=== PATIENT | female | born 1945 | race Caucasian/White ===

== ENCOUNTER → 2022-02-23 09:33 | Outpatient (CLI) | payer MEDICARE, SELFPAY ==
--- OUTSIDE RECORDS SUMMARY | 2022-02-23 09:36 | XMS_ITS ---
:1945 Author Care Team Providers Name Role Phone BERTO TAYLOR MD Primary Care Provider [phone] REI WRIGHT MD General Surgeon [phone] Allergies Code Code System Name Reaction Severity Status Onset Mason Inhibitors ? ? Active ? Animal Dander ? ? Active ? 2670 RxNorm Codeine ? ? Active ? Tree and Shrub Pollen ? ? Active ? RxNorm Zocor ? ? Active ? Medications Name Status Start Date Stop Date ? ? atorvastatin 20 mg tablet Active 01/09/2022 Not av ailable TAKE ONE TABLET BY MOUTH EVERY DAY benzonatate 100 mg capsule Completed ? 03/21 bupropion HCl XL 150 mg 24 hr tablet, extended Active ? Not available release cetirizine 10 mg tablet Active 01/09/2022 Not avai lable Take 1 tablet as needed by oral route for 90 days. clindamycin HCl 150 mg capsule Completed ? 0 10/13/2020 TAKE ONE CAPSULE BY MOUTH FOUR TIMES A DAY UNTIL FINISHED diclofenac 0.1 % eye drops Completed ? 10/14 Instill 1 drop every day by ophthalmic route for 25 days. E-Z Spacer Completed 01/17/2016 04/04/2017 1 (one) Device Device: as directed Elimite 5 % topical cream Completed 09/13/20062005 1 (one) Application(s): see below ferrous sulfate 325 mg (65 mg iron) tablet Active 01/09 Not available Take 1 tablet every other day by oral route for 90 days. fexofenadine 180 mg tablet Completed 08/12/200808/12 1 (one) Tablet: Daily fluticasone propionate 50 mcg/actuation nasal spray,suspensi on Active 01/09/2022 Not available [place] 1 spray every day by nasal route as needed for 30 days. FV Vitamin C/Smita Hips 1000 mg tablet Active 01/09/2022 Not available Take 1 tablet every day by oral route. Glucosamine Chondroit Complx Advan 750 mg-100 mg-125 mg-1.65 mg tablet Active 01/09/2022 Not available Take 1 tablet every day by oral route. hydrochlorothiazide 25 mg tablet Completed 09/28/2004 09/28/2004 1 (one) Tablet: Daily hydrocodone 5 mg-acetaminophen 325 mg tablet Completed 11/201405/18/2016 1 (one) Tablet Tablet: every 4-6 hours as needed Hyzaar 50 mg-12.5 mg tablet Completed 08/18/200808/08 1 (one) Tablet: Daily ibuprofen 600 mg tablet Active 01/09/2022 Not avai lable Jublia 10 % topical solution with applicator Completed 01/201507/12/2015 1 (one) Solution Solution: apply to toenails daily for 48 weeks Kerydin 5 % topical solution with applicator Completed 02/201505/18/2016 1 (one) Solution Solution: daily to affected nails ketorolac 0.5 % eye drops Completed ? 2021 INSTILL ONE DROP IN AFFECTED EYE S ONCE A DAY levothyroxine 125 mcg tablet Active 01/09/2022 Not available TAKE ONE TABLET BY MOUTH EVERY DAY meclizine 25 mg tablet Active 01/09/2022 Not avail able TAKE ONE TABLET BY MOUTH EVERY 8 HOURS NEEDED multivitamin Active 01/09/2022 Not available 1 tablet daily oxycodone 5 mg tablet Completed ? 10/19/2021 penicillin V potassium 500 mg tablet Completed ? 10/13/2020 TAKE ONE TABLET BY MOUTH FOUR TIMES A DAY UNTIL GONE Prempro 0.3 mg-1.5 mg tablet Completed 09/02/2004 1 Tablet: Daily Prempro 0.45 mg-1.5 mg tablet Completed 09/28/2004 ProAir HFA 90 mcg/actuation aerosol inhaler Completed ? 08/22/2019 Inhale 2 puffs every 4 hours by inhalation route as needed for 17 days. Shingrix (PF) 50 mcg/0.5 mL intramuscular Completed ? 12/21/2020 suspension, kit simvastatin 10 mg tablet Completed 01/17/2016 016 1 (one) Tablet: at bedtime timolol maleate 0.5 % eye drops Active 01/09/2022 Not available INSTILL ONE DROP IN EACH EYE EVERY DAY IN THE MORNING triamcinolone acetonide 0.1 % topical cream Completed ? 10/13/2020 APPLY TO AFFECTED AREA(S) TWO TIMES A DAY triamcinolone acetonide 0.5 % topical cream Completed ? 02/24/2021 APPLY A THIN LAYER TO AFFECTED AREA S TWO TIMES A DAY triamcinolone acetonide 0.5 % topical ointment Completed 0 04/13/2009 01/21/2014 1 (one) Ointment: Twice daily valsartan 160 mg-hydrochlorothiazide 12.5 mg Active ? Not available tablet azithromycin 250 mg tablet Active ? Not a vailable Notes: 10/19/21 medication verbrally re viewed with patient Problems Name Status Onset Date Source ? Vertigo Active 04/11/2019 ? Anemia Active 10/13/2019 ? Dusky Discoloration of Skin Active 12/21/2020 ? Dermal Mycosis Active ? 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 History Sphincter Hypothyroidism Active ? History Mixed Hyperlipidemia Active ? History Severe Obesity Active ? History Prolonged Depressive Adjustment Reaction Active ? History Depressive Disorder Active ? History Syringomyelia Active ? History Glaucoma Active ? History Dysfunction of Vestibular System Unknown ? History Hypertensive Disorder Active ? History Carotid Artery Stenosis Unknown ? History Acute Bronchitis Unknown ? History Allergic Rhinitis Active ? History Tracheobronchitis Unknown ? History Ganglion Cyst Active ? History Eruption Unknown ? History Impaired Fasting Glycemia Active ? Histor y Laceration of Toe Unknown ? History Active Immunization Unknown ? History Gynecologic Examination Unknown ? History Viral Screening Unknown ? History Screening Mammography Unknown ? History Procedure by Method Unknown ? History Evaluation Finding Unknown ? History Menopause Present Active ? History Procedures Date Name Performed by ? 01/09/2022 Colonoscopy Information not avai lable Notes: 3 year f/u 09/30/2019 EGD/Endoscopy Information not avai lable Notes: med hiatal hernia. 09/30/2019 Colonoscopy Information not avai lable Notes: mild diverticulosis , 5 sm polyps, hemorrhoids. 11/29/12 WNL,2010 tubular adenomas. 2004 2002 colon polyp 09/08/2015 Mass Cyst Lipoma Excision Information no t available 02/06/2012 Eye Surgery Information not avai lable Notes: folded retina - right eye; 08/09 012-cataract Right eye 10/08/1996 Breast Biopsy Information not avai lable Notes: Benign 10/08/1975 Tubal Ligation Information not avai lable ? Carpal Tunnel Surgery Information not av ailable Notes: bilateral ? Orthopedic Surgery Information not avai lable Notes: Bilateral Ulnar Rel ease; Bilateral Carpal Tunnel Release; Right wrist cyst excision; Right ganglion joint surgery ? Tonsillectomy Information not avai lable Notes: and Adnoidectomy 03/21/2018 MAMMO, Screening, Tomosynthesis, [facility] (Internal) Bilateral [address] [place] [address] (Work Place) 03/13/2019 MAMMO, Screening, Tomosynthesis, [facility] (Internal) Bilateral [address] [place] [address] (Work Place) 06/16/2019 US, Carotid Artery [facility] (Internal) [address] [place] [address] (Work Place) 10/14/2019 XR, Esophagram [facility] (Internal) [address] [place] [address] (Work Place) 03/26/2020 MAMMO, Screening, Tomosynthesis, [facility] (Internal) Bilateral [address] [place] [address] (Work Place) 10/13/2020 DEXA, Axial Skeleton [facility] Rad[facility] (Internal) [address] [place] [address] (Work Place) 06/27/2021 US, Pelvis, Transabdominal + [facility] (Internal) Transvaginal [address] [place] [address] (Work Place) 06/27/2021 MAMMO, Screening, Tomosynthesis, [facility] (Internal) Bilateral [address] [place] [address] ( (Work Place) Results Lab Results Date Name Specimen Result Interpretation Description Value Range Status Address ? 01/09/2022 Pathology TISS ? Report (see ? Final No rth Study below) [facility] ab (Internal) : [address] 11/07/2021 CBC W/ Auto BLD Low Wbc 4.8 5.0-10.0 Final [facility] Diff 10*3/uL 10*3/uL [facility] ab (Internal) : [address] ? ? BLD Low Rbc 3.88 4.10-5.30 Final [facility] 10*6/uL 10*6/uL [facility] L ab (Internal) : [address] ? ? BLD Low Hgb 10.9 g/dL 12.0-16.0 Final Nort h g/dL [facility] L ab (Internal) : [address] ? ? BLD Low Hct 35.4 % 37.0-47.0 Final [facility] L ab (Internal) : [address] ? ? BLD ? Mcv 91.2 fL 80.0-96.0 Final [facility] L ab (Internal) : [address] ? ? BLD ? Mch 28.1 pg 26.0-32.0 Final [facility] L ab (Internal) : [address] ? ? BLD Low Mchc 30.8 g/dL 31.0-35.0 Final Nort h g/dL [facility] L ab (Internal) : [address] ? ? BLD ? Rdw 14.2 % 11.5-14.5 Final [facility] L ab (Internal) : [address] ? ? BLD ? Plt 278 130-450 Final [facility] 10*3/uL 10*3/uL [facility] L ab (Internal) : [address] ? ? BLD ? Anc 2.96 ? Final [facility] 10*3/uL [facility] L ab (Internal) : [address] ? ? BLD ? Nlr 2.39 0.00-3.20 Final L ab (Internal) : [address] ? ? BLD ? Neutro 61.8 % 40.0-75.0 Final [facility] L ab (Internal) : [address] ? ? BLD ? Lymph 25.9 % 20.0-50.0 Final [facility] : [address] ? ? BLD ? [place] 8.6 % 2.0-10.0 Final [facility] ([facility] : [address] ? ? BLD ? Eos 2.5 % 1.0-6.0 % Final [facility] L ab (Internal) : [address] ? ? BLD ? Baso 1.0 % 0.0-1.0 % Final [facility] L ab (Internal) : [address] ? ? BLD ? Ig 0.2 % 0.0-0.9 % Final [facility] L ab (Internal) : [address] 11/07/2021 CMP, Serum or S ? g/r 104 mg/dL 74-106 Fin al [facility] Plasma mg/dL [facility] (Internal) : [address] ? ? S ? Bun 14 mg/dL 7-18 Final [facility] mg/dL [facility] (Internal) : [address] ? ? S ? Crea 1.0 mg/dL 0.6-1.0 Final [facility] mg/dL [facility] (Internal) : [address] ? ? S ? Ca 8.8 mg/dL 8.5-10.1 Final [facility] mg/dL [facility] (Internal) : [address] ? ? S ? Na 142 136-145 Final [facility] mmol/L mmol/L [facility] (Internal) : [address] ? ? S ? K 4.1 3.5-5.1 Final [facility] mmol/L mmol/L [facility] (Internal) : [address] ? ? S ? Cl 104 98-107 Final [facility] mmol/l mmol/l [facility] (Internal) : [address] ? ? S ? Tco2 30.1 21.0-32.0 Final [facility] mmol/L mmol/L [facility] (Internal) : [address] ? ? S ? Tp 6.6 g/dL 6.4-8.2 Final [facility] g/dL [facility] (Internal) : [address] ? ? S ? Alb 3.4 g/dL 3.4-5.0 Final [facility] g/dL [facility] L ab (Internal) : [address] ? ? S ? Tbil 0.40 0.20-1.00 Final [facility] mg/dL mg/dL [facility] L ab (Internal) : [address] ? ? S ? Alp 72 U/L 46-116 Final [facility] U/L [facility] L ab (Internal) : [address] ? ? S ? Alt 20 U/L 14-59 U/L Final [facility] (Sgpt) [facility] L ab (Internal) : [address] ? ? S Low Ast 14 U/L 15-37 U/L Final [facility] (Sgot) [facility] L ab (Internal) : [address] 11/07/2021 TSH, Serum or S ? Tsh 3.60 0.36-3.74 Fin al [facility] Plasma uIU/mL uIU/mL [facility] L ab (Internal) : [address] 11/07/2021 Lipid Panel, S ? Chol 177 mg/dL 0-200 Debra l [facility] Serum mg/dL [facility] L ab (Internal) : [address] ? ? S ? Trig 134 mg/dL 0-150 Final [facility] mg/dL [facility] L ab (Internal) : [address] ? ? S ? Hdl 59 mg/dL 40-60 Final [facility] mg/dL [facility] L ab (Internal) : [address] ? ? S ? Ldl 91 mg/dL 0-130 Final [facility] mg/dL [facility] L ab (Internal) : [address] 11/07/2021 Iron S ? Iron 51 ug/dL 50-170 Final Nort h Saturation, ug/dL Count ry [facility] Hospital L ab (Internal) : [address] ? ? S ? Tibc 325 ug/dL 250-450 Final [facility] ug/dL [facility] L ab (Internal) : [address] ? ? S Low Sat% 16 % 20-55 % Final [facility] L ab (Internal) : [address] 07/05/2021 Pathology TISS ? Report (see ? Final No rth Study below) [facility] L ab (Internal) : [address] 04/20/2021 CBC W/ Auto BLD ? Wbc 6.3 5.0-10.0 Final [facility] Diff 10*3/uL 10*3/uL [facility] L ab (Internal) : [address] ? ? BLD ? Rbc 4.32 4.10-5.30 Final [facility] 10*6/uL 10*6/uL [facility] L ab (Internal) : [address] ? ? BLD ? Hgb 13.1 g/dL 12.0-16.0 Final Nort h g/dL [facility] L ab (Internal) : [address] ? ? BLD ? Hct 40.5 % 37.0-47.0 Final [facility] L ab (Internal) : [address] ? ? BLD ? Mcv 93.8 fL 80.0-96.0 Final [facility] L ab (Internal) : [address] ? ? BLD ? Mch 30.3 pg 26.0-32.0 Final [facility] L ab (Internal) : [address] ? ? BLD ? Mchc 32.3 g/dL 31.0-35.0 Final Nort h g/dL [facility] L ab (Internal) : [address] ? ? BLD ? Rdw 13.9 % 11.5-14.5 Final [facility] L ab (Internal) : [address] ? ? BLD ? Plt 325 130-450 Final [facility] 10*3/uL 10*3/uL [facility] L ab (Internal) : [address] ? ? BLD ? Anc 4.09 ? Final [facility] 10*3/uL [facility] L ab (Internal) : [address] ? ? BLD ? Nlr 2.62 0.00-3.20 Final L ab (Internal) : [address] ? ? BLD ? Neutro 65.2 % 40.0-75.0 Final [facility] L ab (Internal) : [address] ? ? BLD ? Lymph 24.9 % 20.0-50.0 Final [facility] L ab (Internal) : [address] ? ? BLD ? [place] 6.5 % 2.0-10.0 Final [facility] L ab (Internal) : [address] ? ? BLD ? Eos 2.1 % 1.0-6.0 % Final L ab (Internal) : [address] ? ? BLD High Baso 1.1 % 0.0-1.0 % Final L ab (Internal) : [address] ? ? BLD ? Ig 0.2 % 0.0-0.9 % Final L ab (Internal) : [address] 04/20/2021 Iron S ? Iron 64 ug/dL 37-170 Final Nort h Saturation, ug/dL Count [facility] L ab (Internal) : [address] ? ? S ? Tibc 300 ug/dL 265-497 Final [facility] ug/dL [facility] L ab (Internal) : [address] ? ? S ? Sat 21 % 20-55 % Final [facility] L ab (Internal) : [address] 04/20/2021 CMP, Serum or S High g/r 110 mg/dL 74-106 Fin al [facility] Plasma mg/dL [facility] L ab (Internal) : [address] ? ? S ? Bun 17 mg/dL 7-17 Final [facility] mg/dL [facility] L ab (Internal) : [address] ? ? S ? Crea 1.00 0.52-1.04 Final [facility] mg/dL mg/dL [facility] L ab (Internal) : [address] ? ? S ? Ca 9.4 mg/dL 8.4-10.2 Final [facility] mg/dL [facility] L ab (Internal) : [address] ? ? S ? Na 142 137-145 Final [facility] mmol/L mmol/L [facility] (Internal) : [address] ? ? S ? K 3.7 3.5-5.1 Final [facility] mmol/L mmol/L [facility] (Internal) : [address] ? ? S ? Cl 103 98-107 Final [facility] mmol/L mmol/L [facility] (Internal) : [address] ? ? S ? Tco2 29.0 22.0-30.0 Final [facility] mmol/L mmol/L [facility] (Internal) : [address] ? ? S ? Tp 7.4 g/dL 6.3-8.2 Final [facility] g/dL [facility] (Internal) : [address] ? ? S ? Alb 4.2 g/dL 3.5-5.0 Final [facility] g/dL [facility] (Internal) : [address] ? ? S ? Tbil 0.5 mg/dL 0.2-1.3 Final [facility] mg/dL [facility] (Internal) : [address] ? ? S ? Alp 60 U/L 38-126 Final [facility] U/L [facility] (Internal) : [address] ? ? S ? Alt 17 U/L 9-52 U/L Final [facility] (Sgpt) [facility] (Internal) : [address] ? ? S ? Ast 29 U/L 14-36 U/L Final [facility] (Sgot) [facility] (Internal) : [address] 04/20/2021 Lipid Panel, S ? Chol 178 mg/dL 50-200 Debra l [facility] Serum mg/dL [facility] (Internal) : [address] ? ? S ? Trig 140 mg/dL 10-150 Final [facility] mg/dL [facility] (Internal) : [address] ? ? S ? Hdl 55 mg/dL 40-60 Final [facility] mg/dL [facility] (Internal) : [address] ? ? S ? Ldl 95 mg/dL 0-130 Final [facility] mg/dL [facility] (Internal) : [address] [place] 04/20/2021 HbA1C BLD ? Ha1C 5.6 % 4.0-6.0 % Final [facility] (Hemoglobin Count ry a1C), Blood [facility] Lab (Internal) : [address] 04/20/2021 TSH, Serum or S ? Tsh 2.16 0.47-4.68 Fin al [facility] Plasma u[IU]/mL u[IU]/mL [facility] L ab (Internal) : [address] 04/15/2020 CBC W/ Auto BLD Low Wbc 4.7 5.0-10.0 Final [facility] Diff 10*3/uL 10*3/uL [facility] L ab (Internal) : [address] ? ? BLD ? Rbc 4.36 4.10-5.30 Final [facility] 10*6/uL 10*6/uL [facility] L ab (Internal) : [address] ? ? BLD ? Hgb 13.4 g/dL 12.0-16.0 Final Nort h g/dL [facility] L ab (Internal) : [address] ? ? BLD ? Hct 40.5 % 37.0-47.0 Final [facility] L ab (Internal) : [address] ? ? BLD ? Mcv 92.9 fL 80.0-96.0 Final [facility] L ab (Internal) : [address] ? ? BLD ? Mch 30.7 pg 26.0-32.0 Final [facility] pg [facility] L ab (Internal) : [address] ? ? BLD ? Mchc 33.1 g/dL 31.0-35.0 Final Nort h g/dL [facility] L ab (Internal) : [address] ? ? BLD ? Rdw 13.4 % 11.5-14.5 Final [facility] L ab (Internal) : [address] ? ? BLD ? Plt 276 130-450 Final [facility] 10*3/uL 10*3/uL [facility] L ab (Internal) : [address] ? ? BLD ? Anc 2.74 ? Final [facility] 10*3/uL [facility] L ab (Internal) : [address] ? ? BLD ? Nlr 2.16 0.00-3.20 Final L ab (Internal) : [address] ? ? BLD ? Neutro 58.1 % 40.0-75.0 Final [facility] L ab (Internal) : [address] ? ? BLD ? Lymph 27.0 % 20.0-50.0 Final [facility] L ab (Internal) : [address] ? ? BLD ? [place] 7.9 % 2.0-10.0 Final [facility] L ab (Internal) : [address] ? ? BLD ? Eos 5.5 % 1.0-6.0 % Final L ab (Internal) : [address] ? ? BLD High Baso 1.3 % 0.0-1.0 % Final L ab (Internal) : [address] ? ? BLD ? Ig 0.2 % 0.0-0.9 % Final L ab (Internal) : [address] 04/15/2020 HbA1C BLD ? Ha1C 5.6 % 4.0-6.0 % Final [facility] (Hemoglobin Count ry a1C), Blood [facility] (Internal) : [address] 04/15/2020 Lipid Panel, S ? Chol 169 mg/dL 50-200 Debra l [facility] Serum mg/dL [facility] L ab (Internal) : [address] ? ? S ? Trig 107 mg/dL 10-150 Final [facility] mg/dL [facility] L ab (Internal) : [address] ? ? S ? Hdl 50 mg/dL 40-60 Final [facility] mg/dL [facility] L ab (Internal) : [address] ? ? S ? Ldl 98 mg/dL 0-130 Final [facility] mg/dL [facility] L ab (Internal) : [address] 04/15/2020 CMP, Serum or S High g/r 107 mg/dL 74-106 Fin al [facility] Plasma mg/dL [facility] (Internal) : [address] ? ? S High Bun 21 mg/dL 7-17 Final [facility] mg/dL [facility] (Internal) : [address] ? ? S High Crea 1.10 0.52-1.04 Final [facility] mg/dL mg/dL [facility] (Internal) : [address] ? ? S ? Ca 9.1 mg/dL 8.4-10.2 Final [facility] mg/dL [facility] (Internal) : [address] ? ? S ? Na 141 137-145 Final [facility] mmol/L mmol/L [facility] (Internal) : [address] ? ? S ? K 3.8 3.5-5.1 Final [facility] mmol/L mmol/L [facility] (Internal) : [address] ? ? S ? Cl 105 98-107 Final [facility] mmol/L mmol/L [facility] (Internal) : [address] ? ? S ? Tco2 29.0 22.0-30.0 Final [facility] mmol/L mmol/L [facility] (Internal) : [address] ? ? S ? Tp 6.9 g/dL 6.3-8.2 Final [facility] g/dL [facility] (Internal) : [address] ? ? S ? Alb 3.8 g/dL 3.5-5.0 Final [facility] g/dL [facility] (Internal) : [address] ? ? S ? Tbil 0.5 mg/dL 0.2-1.3 Final [facility] mg/dL [facility] (Internal) : [address] ? ? S ? Alp 63 U/L 38-126 Final [facility] U/L [facility] (Internal) : [address] ? ? S ? Alt 21 U/L 9-52 U/L Final [facility] (Sgpt) [facility] (Internal) : [address] ? ? S ? Ast 29 U/L 14-36 U/L Final [facility] (Sgot) [facility] L ab (Internal) : [address] 04/15/2020 Iron, Serum SERUM ? Iron 72 ug/dL 37-170 Final [facility] ug/dL [facility] L ab (Internal) : [address] [facility] 04/15/2020 T4, Free, S ? Ft4 1.15 0.78-2.19 Final [facility] Serum NG/dL NG/dL [facility] L ab (Internal) : [address] 04/15/2020 Microalbumin, UR High Malb 40.0 mg/L 5.0-16.7 F inal [facility] Urine mg/L [facility] L ab (Internal) : [address] ? ? UR ? U-crea 94 mg/dL 30-125 Final [facility] , Spot mg/dL [facility] L ab (Internal) : [address] ? ? UR High Microa 42.5 0.0-30.0 Final [facility] lb/crea ug/mg ug/mg [facility] L ab (Internal) : [address] [place] 04/15/2020 TSH, Serum or S ? Tsh 4.64 0.47-4.68 Fin al [facility] Plasma u[IU]/mL u[IU]/mL [facility] L ab (Internal) : [address] 04/15/2020 Ferritin, S ? Ferr 14 NG/mL 11-264 Final N orth Serum or NG/mL [facility] L ab (Internal) : [address] 11/19/2019 CBC W/ Auto BLD ? Wbc 6.5 5.0-10.0 Final [facility] Diff 10*3/uL 10*3/uL [facility] L ab (Internal) : [address] ? ? BLD ? Rbc 4.39 4.10-5.30 Final [facility] 10*6/uL 10*6/uL [facility] L ab (Internal) : [address] hi ? ? BLD Low Hgb 11.9 g/dL 12.0-16.0 Final Nort h g/dL [facility] L ab (Internal) : [address] ? ? BLD ? Hct 38.6 % 37.0-47.0 Final [facility] L ab (Internal) : [address] ? ? BLD ? Mcv 87.9 fL 80.0-96.0 Final [facility] L ab (Internal) : [address] ? ? BLD ? Mch 27.1 pg 26.0-32.0 Final [facility] L ab (Internal) : [address] ? ? BLD Low Mchc 30.8 g/dL 31.0-35.0 Final Nort h g/dL [facility] L ab (Internal) : [address] ? ? BLD High Rdw 20.0 % 11.5-14.5 Final [facility] L ab (Internal) : [address] ? ? BLD ? Plt 296 130-450 Final [facility] 10*3/uL 10*3/uL [facility] L ab (Internal) : [address] ? ? BLD ? Anc 3.68 ? Final [facility] 10*3/uL [facility] L ab (Internal) : [address] ? ? BLD ? Neutro 56.6 % 40.0-75.0 Final [facility] L ab (Internal) : [address] ? ? BLD ? Lymph 31.5 % 20.0-50.0 Final [facility] L ab (Internal) : [address] ? ? BLD ? [place] 7.4 % 2.0-10.0 Final [facility] L ab (Internal) : [address] ? ? BLD ? Eos 3.2 % 1.0-6.0 % Final L ab (Internal) : [address] ? ? BLD High Baso 1.1 % 0.0-1.0 % Final L ab (Internal) : [address] ? ? BLD ? Ig 0.2 % 0.0-0.9 % Final L ab (Internal) : [address] 11/19/2019 RBC BLD ? Aniso moderate ? Final Nort h Morphology, Count Blood Hospital L ab (Internal) : [address] 09/30/2019 Pathology TISS ? Report (see ? Corrected [facility] Study below) [facility] L ab (Internal) : [address] 06/23/2019 Fecal Occult STL - Occ negative negative Fin [facility] Blood X 3, Bld 1 Countr y [facility] Hospital L ab (Internal) : [address] ? ? STL - Occ negative negative [facility] L ab (Internal) : [address] t ? ? STL - Occ negative negative [facility] L ab (Internal) : [address] 06/16/2019 CBC W/ Auto BLD - Wbc 6.4 5.0-10.0 Final [facility] Diff 10*3/uL 10*3/uL [facility] L ab (Internal) : [address] ? ? BLD Low Rbc 3.99 4.10-5.30 Final [facility] 10*6/uL 10*6/uL [facility] L ab (Internal) : [address] ? ? BLD Low Hgb 10.4 g/dL 12.0-16.0 Final Nort h g/dL [facility] L ab (Internal) : [address] ? ? BLD Low Hct 33.9 % 37.0-47.0 Final [facility] L ab (Internal) : [address] ? ? BLD - Mcv 85.0 fL 80.0-96.0 Final [facility] L ab (Internal) : [address] ? ? BLD - Mch 26.1 pg 26.0-32.0 Final [facility] L ab (Internal) : [address] ? ? BLD Low Mchc 30.7 g/dL 31.0-35.0 Final Nort h g/dL [facility] L ab (Internal) : [address] ? ? BLD High Rdw 16.1 % 11.5-14.5 Final [facility] L ab (Internal) : [address] ? ? BLD - Plt 303 130-450 Final [facility] 10*3/uL 10*3/uL [facility] L ab (Internal) : [address] ? ? BLD - Anc 3.82 ? Final [facility] 10*3/uL [facility] L ab (Internal) : [address], [place] hi ? ? BLD - Neutro 59.6 % 40.0-75.0 Final [facility] L ab (Internal) : [address] ? ? BLD - Lymph 28.9 % 20.0-50.0 Final [facility] L ab (Internal) : [address] hi ? ? BLD - [place] 6.9 % 2.0-10.0 Final [facility] L ab (Internal) : [address] ? ? BLD - Eos 3.3 % 1.0-6.0 % Final L ab (Internal) : [address] ? ? BLD High Baso 1.1 % 0.0-1.0 % Final L ab (Internal) : [address] ? ? BLD - Ig 0.2 % 0.0-0.9 % Final L ab (Internal) : [address] 06/16/2019 Retic Count, BLD - Retic 2.1 % 0.5-2.4 % Debra l [facility] Blood [facility] L ab (Internal) : [address] 06/16/2019 Lipase, Serum S - Lip 127 U/L 23-300 Final [facility] or Plasma U/L [facility] L ab (Internal) : [address] 06/16/2019 Renal Function S - g/r 106 mg/dL 74-106 Fi nal [place] Panel, Serum mg/dL Coun [facility] L ab (Internal) : [address] ? ? S High Bun 19 mg/dL 7-17 Final [facility] mg/dL [facility] L ab (Internal) : [address] ? ? S - Crea 1.00 0.52-1.04 Final [facility] mg/dL mg/dL [facility] L ab (Internal) : [address] ? ? S - Ca 9.4 mg/dL 8.4-10.2 Final [facility] mg/dL [facility] L [facility] (Internal) : [address] ? ? S - Phos 4.1 mg/dL 2.5-4.5 Final [facility] mg/dL [facility] L ab (Internal) : [address] ? ? S - Na 141 137-145 Final [facility] mmol/L mmol/L [facility] L ab (Internal) : [address] ? ? S - K 4.0 3.5-5.1 Final [facility] mmol/L mmol/L [facility] L ab (Internal) : [address] ? ? S - Cl 103 98-107 Final [facility] mmol/L mmol/L [facility] L ab (Internal) : [address] ? ? S High Tco2 31.0 22.0-30.0 Final [facility] mmol/L mmol/L [facility] L ab (Internal) : [address] ? ? S - Alb 4.1 g/dL 3.5-5.0 Final [facility] g/dL [facility] L ab (Internal) : [address] ? ? S Low GFR 55 >89 Final [facility] (Calc) [facility] L ab (Internal) : [address] 06/16/2019 Iron, Serum SERUM - Iron 40 ug/dL 37-170 Final [facility] ug/dL [facility] L ab (Internal) : [address] 06/16/2019 TIBC (Total SERUM - Tibc 366 ug/dL 265-497 Debra l [place] Iron-binding ug/dL Coun try Capacity), Hospit al Lab Serum (Internal) : [address] 06/16/2019 RBC BLD - Aniso small ? Final [facility] Morphology, Count Blood Hospital L ab (Internal) : [address] ? ? BLD - Oval rare ? Final [facility] Hospital L ab (Internal) : [address] 06/16/2019 Folate, Serum S - Folate >17.00 2.76-20.0 Fi nal [place] NG/mL 0 NG/mL [facility] L ab (Internal) : [address] 06/16/2019 Vitamin B12, S High Vit 965.0 239.0-931 Debra Cox [place] Serum B12 pg/mL .0 pg/mL [facility] L ab (Internal) : [address] [place] 06/16/2019 Ferritin, S Low Ferr 7 NG/mL 11-264 Final No rth Serum or NG/mL [facility] L ab (Internal) : [address] 06/08/2019 CBC W/ Auto BLD - Wbc 6.3 5.0-10.0 Final [facility] Diff 10*3/uL 10*3/uL [facility] L ab (Internal) : [address] ? ? BLD Low Rbc 4.01 4.10-5.30 Final [facility] 10*6/uL 10*6/uL [facility] L ab (Internal) : [address] ? ? BLD Low Hgb 10.6 g/dL 12.0-16.0 Final Nort h g/dL [facility] L ab (Internal) : [address] ? ? BLD Low Hct 33.9 % 37.0-47.0 Final [facility] Hospital L ab (Internal) : [address] ? ? BLD - Mcv 84.5 fL 80.0-96.0 Final [facility] L ab (Internal) : [address] ? ? BLD - Mch 26.4 pg 26.0-32.0 Final [facility] Hospital L ab (Internal) : [address] ? ? BLD - Mchc 31.3 g/dL 31.0-35.0 Final Nort h g/dL [facility] L ab (Internal) : [address] ? ? BLD High Rdw 16.0 % 11.5-14.5 Final [facility] L ab (Internal) : [address] ? ? BLD - Plt 334 130-450 Final [facility] 10*3/uL 10*3/uL [facility] L ab (Internal) : [address] ? ? BLD - Anc 3.66 ? Final [facility] 10*3/uL [facility] L ab (Internal) : [address], [place] ? ? BLD - Neutro 58.0 % 40.0-75.0 Final [facility] L ab (Internal) : [address] t ? ? BLD - Lymph 29.8 % 20.0-50.0 Final [facility] L ab (Internal) : [address] ? ? BLD - [place] 7.9 % 2.0-10.0 Final [facility] L ab (Internal) : [address] t ? ? BLD - Eos 3.0 % 1.0-6.0 % [facility] (Internal) : [address] t ? ? BLD High Baso 1.1 % 0.0-1.0 % [facility] (Internal) : [address] ? ? BLD - Ig 0.2 % 0.0-0.9 % Final [facility] L ab (Internal) : [address] 06/08/2019 CMP, Serum or S High g/r 121 mg/dL 74-106 Fin al [facility] Plasma mg/dL [facility] L ab (Internal) : [address] t ? ? S High Bun 22 mg/dL 7-17 Final [facility] mg/dL [facility] L ab (Internal) : [address] ? ? S High Crea 1.10 0.52-1.04 Final [facility] mg/dL mg/dL [facility] L ab (Internal) : [address] t ? ? S - Ca 9.1 mg/dL 8.4-10.2 Final [facility] mg/dL [facility] L ab (Internal) : [address] t ? ? S - Na 142 137-145 Final [facility] mmol/L mmol/L [facility] L ab (Internal) : [address] ? ? S - K 3.8 3.5-5.1 Final [facility] mmol/L mmol/L [facility] L ab (Internal) : [address] ? ? S - Cl 104 98-107 Final [facility] mmol/L mmol/L [facility] L ab (Internal) : [address] ? ? S - Tco2 30.0 22.0-30.0 Final [facility] mmol/L mmol/L [facility] L ab (Internal) : [address] ? ? S - Tp 7.5 g/dL 6.3-8.2 Final [facility] g/dL [facility] L ab (Internal) : [address] t ? ? S - Alb 4.2 g/dL 3.5-5.0 Final [facility] g/dL [facility] L ab (Internal) : [address] ? ? S - Tbil 0.2 mg/dL 0.2-1.3 Final [facility] mg/dL [facility] L ab (Internal) : [address] ? ? S - Alp 71 U/L 38-126 Final [facility] U/L [facility] L ab (Internal) : [address] ? ? S - Alt 26 U/L 9-52 U/L Final [facility] (Sgpt) [facility] L ab (Internal) : [address] ? ? S - Ast 30 U/L 14-36 U/L Final [facility] (Sgot) [facility] L ab (Internal) : [address] 06/08/2019 RBC BLD - Aniso small ? Final [facility] Morphology, Count ry Blood Hospital L ab (Internal) : [address] 04/08/2019 CMP, Serum or S High g/r 110 mg/dL 74-106 Fin al [facility] Plasma mg/dL [facility] L ab (Internal) : [address] ? ? S High Bun 20 mg/dL 7-17 Final [facility] mg/dL [facility] L ab (Internal) : [address] ? ? S - Crea 1.00 0.52-1.04 Final [facility] mg/dL mg/dL [facility] L ab (Internal) : [address] ? ? S - Ca 9.0 mg/dL 8.4-10.2 Final [facility] mg/dL [facility] L ab (Internal) : [address] ? ? S - Na 138 137-145 Final [facility] mmol/L mmol/L [facility] L ab (Internal) : [address] t ? ? S - K 4.0 3.5-5.1 Final [facility] mmol/L mmol/L [facility] L ab (Internal) : [address] t ? ? S - Cl 103 98-107 Final [facility] mmol/L mmol/L [facility] L ab (Internal) : [address] t ? ? S - Tco2 30.0 22.0-30.0 Final [facility] mmol/L mmol/L [facility] L ab (Internal) : [address] t ? ? S - Tp 7.3 g/dL 6.3-8.2 Final [facility] g/dL [facility] L ab (Internal) : [address] t ? ? S - Alb 4.1 g/dL 3.5-5.0 Final [facility] g/dL [facility] L ab (Internal) : [address] ? ? S - Tbil 0.3 mg/dL 0.2-1.3 Final [facility] mg/dL [facility] L ab (Internal) : [address] ? ? S - Alp 69 U/L 38-126 Final [facility] U/L [facility] L ab (Internal) : [address] ? ? S - Alt 14 U/L 9-52 U/L Final [facility] (Sgpt) [facility] L ab (Internal) : [address] t ? ? S - Ast 24 U/L 14-36 U/L Final [facility] (Sgot) [facility] L ab (Internal) : [address] 04/08/2019 Lipid Panel, S - Chol 163 mg/dL 50-200 Debra l [facility] Serum mg/dL [facility] L ab (Internal) : [address] ? ? S - Trig 109 mg/dL 10-150 Final [facility] mg/dL [facility] L ab (Internal) : [address] ? ? S - Hdl 55 mg/dL 40-60 Final [facility] mg/dL [facility] L ab (Internal) : [address] ? ? S - Ldl 86 mg/dL 0-130 Final [facility] mg/dL [facility] L ab (Internal) : [address] 04/08/2019 T4, Free, S - Ft4 1.40 0.78-2.19 Final [facility] Serum NG/dL NG/dL [facility] L ab (Internal) : [address] 04/08/2019 TSH, Serum or S - Tsh 4.00 0.47-4.68 Fin al [facility] Plasma u[IU]/mL u[IU]/mL Countr y Hospital L ab (Internal) : [address] 04/08/2019 HbA1C BLD - Ha1C 5.7 % 4.0-6.0 % Final Nor th (Hemoglobin Count ry a1C), Blood Hospi nehemias Lab (Internal) : [address] 05/04/2018 HbA1C BLD - Ha1C 5.9 % 4.0-6.0 % Final Nor th (Hemoglobin Count ry a1C), Blood Hospi nehemias Lab (Internal) : [address] 05/04/2018 CMP, Serum or S - g/r 104 mg/dL 74-106 Fin al [facility] Plasma mg/dL [facility] L ab (Internal) : [address] ? ? S High Bun 19 mg/dL 7-17 Final [facility] mg/dL [facility] L ab (Internal) : [address] ? ? S - Crea 1.00 0.52-1.04 Final [facility] mg/dL mg/dL [facility] L ab (Internal) : [address] ? ? S - Ca 8.9 mg/dL 8.4-10.2 Final [facility] mg/dL [facility] L ab (Internal) : [address] t ? ? S - Na 141 137-145 Final [facility] mmol/L mmol/L [facility] L ab (Internal) : [address] ? ? S - K 4.6 3.5-5.1 Final [facility] mmol/L mmol/L [facility] L ab (Internal) : [address] ? ? S - Cl 105 98-107 Final [facility] mmol/L mmol/L [facility] L ab (Internal) : [address] ? ? S - Tco2 29.0 22.0-30.0 Final [facility] mmol/L mmol/L [facility] L ab (Internal) : [address] ? ? S - Tp 7.1 g/dL 6.3-8.2 Final [facility] g/dL [facility] L ab (Internal) : [address] ? ? S - Alb 4.0 g/dL 3.5-5.0 Final [facility] g/dL [facility] L ab (Internal) : [address] ? ? S - Tbil 0.4 mg/dL 0.2-1.3 Final [facility] mg/dL [facility] L ab (Internal) : [address] t ? ? S - Alp 65 U/L 38-126 Final [facility] U/L [facility] L ab (Internal) : [address] ? ? S - Alt 23 U/L 9-52 U/L Final [facility] (Sgpt) [facility] L ab (Internal) : [address] ? ? S - Ast 22 U/L 14-36 U/L Final [facility] (Sgot) [facility] L ab (Internal) : [address] 05/04/2018 Lipid Panel, S - Chol 149 mg/dL 50-200 Debra l [facility] Serum mg/dL [facility] L ab (Internal) : [address] ? ? S - Trig 118 mg/dL 10-150 Final [facility] mg/dL [facility] L ab (Internal) : [address] ? ? S - Hdl 53 mg/dL 40-60 Final [facility] mg/dL [facility] L ab (Internal) : [address] ? ? S - Ldl 72 mg/dL 0-130 Final [facility] mg/dL [facility] L ab (Internal) : [address] 05/04/2018 T4, Free, S - Ft4 1.22 0.78-2.19 Final [facility] Serum NG/dL NG/dL [facility] L ab (Internal) : [address] [facility] 05/04/2018 TSH, Serum or S - Tsh 3.84 0.47-4.68 Fin al [facility] Plasma u[IU]/mL u[IU]/mL [facility]Internal[facility] [address] [facility]2017 Venipuncture BLD ? Venpn* ? ? Final L ab (Internal) : [address] [facility] 10/05/2017 T4, Free, S ? Ft4 1.14 0.78-2.19 Final [facility] Serum NG/dL NG/dL [facility] L ab (Internal) : [address] [facility] 10/05/2017 TSH, Serum or S ? Tsh 3.54 0.47-4.68 Fin [facility] Plasma u[IU]/mL u[IU]/mL [facility] L ab (Internal) : [address] [facility] 04/04/2017 Venipuncture BLD ? Venpn* ? ? Final L ab (Internal) : [address] [facility] 04/04/2017 RBC BLD ? Aniso small ? Final [facility] Morphology, Count Blood Hospital L ab (Internal) : [address] [facility] 04/04/2017 CBC W/ Auto BLD ? Wbc 5.8 5.0-10.0 Final [facility] Diff 10*3/uL 10*3/uL [facility] L ab (Internal) : [address] ? ? BLD ? Rbc 4.12 4.10-5.30 Final [facility] 10*6/uL 10*6/uL [facility] L ab (Internal) : [address] ? ? BLD Low Hgb 11.8 g/dL 12.0-16.0 Final Nort h g/dL [facility] L ab (Internal) : [address] ? ? BLD ? Hct 37.9 % 37.0-47.0 Final [facility] L ab (Internal) : [address] ? ? BLD ? Mcv 92.0 fL 80.0-96.0 Final [facility] L ab (Internal) : [address] ? ? BLD ? Mch 28.6 pg 26.0-32.0 Final [facility] pg [facility] L ab (Internal) : [address] ? ? BLD ? Mchc 31.1 g/dL 31.0-35.0 Final Nort h g/dL [facility] L ab (Internal) : [address] ? ? BLD High Rdw 15.3 % 11.5-14.5 Final [facility] L ab (Internal) : [address] ? ? BLD ? Plt 319 130-450 Final [facility] 10*3/uL 10*3/uL [facility] L ab (Internal) : [address] ? ? BLD ? Anc 3.35 ? Final [facility] 10*3/uL [facility] L ab (Internal) : [address] ? ? BLD ? Neutro 57.8 % 40.0-75.0 Final [facility] L ab (Internal) : [address] ? ? BLD ? Lymph 29.7 % 20.0-50.0 Final [facility] L ab (Internal) : [address] ? ? BLD ? [place] 7.9 % 2.0-10.0 Final [facility] L ab (Internal) : [address] ? ? BLD ? Eos 3.4 % 1.0-6.0 % Final L ab (Internal) : [address] ? ? BLD ? Baso 1.0 % 0.0-1.0 % Final L ab (Internal) : [address] ? ? BLD ? Ig 0.2 % 0.0-0.9 % Final L ab (Internal) : [address] t 04/04/2017 Hepatitis C S ? Hep C negative negat Final [facility] Virus Ab, Ab W [facility] Serum Rfx PCR Hospital Lab (Internal) : [address] t 04/04/2017 T4, Free, S ? Ft4 1.23 0.78-2.19 Final [facility] Serum NG/dL NG/dL [facility] L ab (Internal) : [address] t 04/04/2017 HbA1C BLD ? Ha1C 5.8 % 4.0-6.0 % Final [facility] th (Hemoglobin Count ry a1C), Blood Hospi [facility] Lab (Internal) : [address] t 04/04/2017 Lipid Panel, S ? Chol 161 mg/dL 50-200 Debra l [facility] Serum mg/dL [facility] L ab (Internal) : [address] t ? ? S ? Trig 105 mg/dL 10-150 Final [facility] mg/dL [facility] L ab (Internal) : [address] t ? ? S ? Hdl 56 mg/dL 40-60 Final [facility] mg/dL [facility] L ab (Internal) : [address] ? ? S ? Ldl 84 mg/dL 0-130 Final [facility] mg/dL [facility] L ab (Internal) : [address] 04/04/2017 TSH, Serum or S High Tsh 5.04 0.47-4.68 Fin al [facility] Plasma u[IU]/mL u[IU]/mL [facility] L ab (Internal) : [address] 04/04/2017 CMP, Serum or S High g/r 112 mg/dL 74-106 Fin al [facility] Plasma mg/dL [facility] L ab (Internal) : [address] t ? ? S High Bun 19 mg/dL 7-17 Final [facility] mg/dL [facility] L ab (Internal) : [address] ? ? S ? Crea 1.00 0.52-1.04 Final [facility] mg/dL mg/dL [facility] L ab (Internal) : [address] t ? ? S ? Ca 8.8 mg/dL 8.4-10.2 Final [facility] mg/dL [facility] L ab (Internal) : [address] t ? ? S ? Na 141 137-145 Final [facility] mmol/L mmol/L [facility] L ab (Internal) : [address] t ? ? S ? K 3.8 3.5-5.1 Final [facility] mmol/L mmol/L [facility] L ab (Internal) : [address] t ? ? S ? Cl 105 98-107 Final [facility] mmol/L mmol/L [facility] L ab (Internal) : [address] ? ? S ? Tco2 26.0 22.0-30.0 Final [facility] mmol/L mmol/L [facility] L ab (Internal) : [address] ? ? S ? Tp 7.3 g/dL 6.3-8.2 Final [facility] g/dL [facility] L ab (Internal) : [address] ? ? S ? Alb 4.1 g/dL 3.5-5.0 Final [facility] g/dL [facility] L ab (Internal) : [address] ? ? S ? Tbil 0.5 mg/dL 0.2-1.3 Final [facility] mg/dL [facility] L ab (Internal) : [address] ? ? S ? Alp 67 U/L 38-126 Final [facility] U/L [facility] L ab (Internal) : [address] ? ? S ? Alt 28 U/L 9-52 U/L Final [facility] (Sgpt) [facility] L ab (Internal) : [address] ? ? S ? Ast 29 U/L 14-36 U/L Final [facility] (Sgot) [facility] L ab (Internal) : [address] [place] Past Encounters 11/09/2021 Iron Deficiency Anemia Berto Taylor MD: [address] [place] [phone], Ph. 10/19/2021 Adult Health Examination; Endometrial Ca rcinoma; Osteopenia; Hypothyroidism; Hypertensive Disorder; Iron Deficiency Anemia; Severe Obesity Berto Taylor MD: [address] [place] [phone], Ph. 07/13/2021 Adenocarcinoma of Endometrium Shai Perales MD: [address] [place] [phone], Ph. 07/05/2021 Abnormal Uterine Bleeding Shai Perales MD: [address] [place] [phone], Ph. 06/27/2021 Postmenopausal Bleeding; Screening Mammo ahmety Tracey Arguello CNM: [address] [place] [phone], Ph. 04/20/2021 Hypertensive Disorder; Insomnia; Severe Obesity; Bunion Berto Taylor MD: [address] [place] [phone], Ph. 02/24/2021 Cataract Jacky Valencia MD: [address] [place] [phone], Ph. 02/11/2021 Administration of Viral Vaccine Jennifer Pereira MD: [address] [place] [phone], Ph. 12/21/2020 Dusky Discoloration of Skin; Vertigo ASHVIN Mcneill: [address] [place] [phone], Ph. 10/13/2020 Adult Health Examination; Hypertensive D isorder; Hypothyroidism; Impaired Fasting Glycemia; Mixed Hyperlipidemia; Severe Obesity; Eczema; Allergic Rhinitis; Immunization Due Jennifer Pereira MD: [address] [place] [phone], Ph. Social History Tobacco Smoking Status Never Smoker Vaccine List Vaccine Type COVID-19, mRNA, LNP-S, PF, 100 mcg/0.5 m L dose (Moderna) 12/02/2020?0.5 mL 12/31/2020?100 mcg 08/05/2021 influenza, high dose seasonal 06/21/2017?0.5 mL 07/04/2018?0.5 mL 07/10/2019?0.5 mL 07/06/2021?0.5 mL influenza, high-dose, quadrivalent 06/30/2020 influenza, seasonal, injectable 07/24/2006 09/25/2007 10/13/2009 07/01/2014?0.5 mL 07/14/2015?0.5 mL 07/11/2016?0.5 mL influenza, seasonal, injectable, preserv ative free 07/20/2010?0.5 mL 06/13/2011?0.5 mL 06/25/2012?0.5 mL 06/26/2013?0.5 mL novel [id number], all formulation s 10/13/2009 pneumococcal conjugate PCV 13 07/12/2015?0.5 mL pneumococcal polysaccharide [id number] 10/23/2012?0.5 mL 10/10/2017?0.5 mL rubella Td (adult), adsorbed 03/08/1996 Tdap 11/06/2006 10/05/2015?0.5 mL zoster live 02/03/2008 zoster recombinant 10/13/2020?0.5 mL 02/11/2021?0.5 mL Plan of Care Reminders Provider Appointments None recorded. ? ? Lab None recorded. ? ? Referral None recorded. ? ? Procedures None recorded. ? ? Surgeries None recorded. ? ? Imaging None recorded. ? ? Vitals 11/09/2021 10:40AM Follow Up 20 Height Weight BMI Blood Pressure 160.66 cm 114.85 kg 44.5 kg/m2 122/80 mm[Hg] 10/19/2021 08:40AM AWV 40 Height Weight BMI Blood Pressure 160.66 cm 114.71 kg 44.4 kg/m2 130/90 mm[Hg] 07/13/2021 01:00PM Office 20 Height 162.56 cm 07/05/2021 03:00PM Preop Clearance 30 Height Weight BMI Blood Pressure 162.56 cm 116.57 kg 44.1 kg/m2 126/72 mm[Hg] 06/27/2021 10:30AM Office 30 Height Blood Pressure 162.56 cm 134/72 mm[Hg] 04/20/2021 08:40AM Office KRANTHI 40 Height Weight BMI Blood Pressure 162.56 cm 117.93 kg 44.6 kg/m2 120/80 mm[Hg] 02/24/2021 09:00AM Preop Clearance 40 Height Weight BMI Blood Pressure 162.56 cm 119.07 kg 45.1 kg/m2 120/78 mm[Hg] 02/11/2021 08:40AM Nurse 20 Height 162.56 cm 12/21/2020 08:40AM Acute 20 Height Weight BMI Blood Pressure 162.56 cm 118.47 kg 44.8 kg/m2 130/80 mm[Hg] 10/13/2020 08:40AM AWV 40 Height Weight BMI Blood Pressure 162.56 cm 118.52 kg 44.9 kg/m2 132/82 mm[Hg] 04/12/2020 11:20AM Follow Up 20 Height Weight BMI Blood Pressure 162.56 cm 119.49 kg 45.2 kg/m2 124/80 mm[Hg] 03/26/2020 08:30AM HME 30 Height Weight BMI Blood Pressure 162.56 cm 121.06 kg 45.8 kg/m2 152/78 mm[Hg] 11/07/2019 08:15AM Acute 15 Height 162.56 cm 10/13/2019 11:20AM Follow Up 20 Height Weight BMI Blood Pressure 162.56 cm 119.02 kg 45 kg/m2 140/80 mm[Hg] 08/22/2019 10:30AM Office 15 Height Blood Pressure 162.56 cm 140/80 mm[Hg] 06/16/2019 11:40AM Follow Up 20 Height Blood Pressure 162.56 cm 132/74 mm[Hg] 04/11/2019 11:20AM Follow Up 20 Height Weight BMI Blood Pressure 162.56 cm 117.75 kg 44.6 kg/m2 138/80 mm[Hg] 10/14/2018 01:00PM Follow Up 20 Height Weight BMI Blood Pressure 162.56 cm 117.68 kg 44.5 kg/m2 127/80 mm[Hg] 04/15/2018 01:40PM Follow Up 40 Height Weight BMI Blood Pressure 162.56 cm 122.65 kg 46.4 kg/m2 130/80 mm[Hg] 03/21/2018 09:00AM HME 30 Height Weight BMI Blood Pressure 162.56 cm 120.7 kg 45.7 kg/m2 118/70 mm[Hg] 01/02/2018 Blood Pressure 148/76 mm[Hg] 10/10/2017 Height Weight Blood Pressure 162.56 cm 119.79 kg (1) 158/82 mm[Hg] (2) 118/55 mm[Hg] 06/05/2017 Weight Blood Pressure 121.56 kg 138/78 mm[Hg] 04/04/2017 Weight Blood Pressure 121.76 kg 114/64 mm[Hg] 02/02/2017 Height Weight Blood Pressure 162.56 cm 121.11 kg 126/70 mm[Hg] 09/19/2016 Height Weight Blood Pressure 162.56 cm 119.75 kg 132/80 mm[Hg] 05/18/2016 Height Weight Blood Pressure 167.64 cm 120.43 kg 128/82 mm[Hg] 01/17/2016 Height Weight Blood Pressure 162.56 cm 118.25 kg 122/70 mm[Hg] 10/15/2015 Height Weight Blood Pressure 162.56 cm 117.48 kg 126/70 mm[Hg] 09/17/2015 Height Weight Blood Pressure 162.56 cm 117.48 kg 126/70 mm[Hg] 07/19/2015 Height Weight Blood Pressure 162.56 cm 117.48 kg 126/78 mm[Hg] 07/12/2015 Weight Blood Pressure 118.61 kg 122/68 mm[Hg] 03/26/2015 Height Weight 142.24 cm 120.88 kg 03/10/2015 Weight Blood Pressure 120.88 kg 116/74 mm[Hg] 02/08/2015 Height Weight Blood Pressure 161.29 cm 120.7 kg 138/82 mm[Hg] 08/05/2014 Height Weight Blood Pressure 162.56 cm 119.75 kg 126/76 mm[Hg] 06/30/2014 Height Weight Blood Pressure 162.56 cm 119.75 kg 130/70 mm[Hg] 01/21/2014 Height Weight Blood Pressure 162.56 cm 119.29 kg 102/70 mm[Hg] 07/23/2013 Height Weight Blood Pressure 162.56 cm 121.56 kg (1) 134/82 mm[Hg] (2) 130/78 mm[Hg] (3) 144/84 mm[Hg] 06/26/2013 Height Weight Blood Pressure 165.1 cm 122.92 kg 118/60 mm[Hg] 10/23/2012 Weight Blood Pressure 122.92 kg 122/76 mm[Hg] 06/25/2012 Height Weight Blood Pressure 165.1 cm 125.19 kg 120/70 mm[Hg] 04/11/2012 Weight Blood Pressure 121.56 kg 124/78 mm[Hg] 01/17/2012 Height Weight Blood Pressure 165.1 cm 121.11 kg 110/74 mm[Hg] 12/06/2011 Weight Blood Pressure 120.46 kg 112/82 mm[Hg] 2011 Height Weight Blood Pressure 165.1 cm 119.29 kg 132/80 mm[Hg] 06/13/2011 Height Weight Blood Pressure 165.1 cm 120.2 kg 138/78 mm[Hg] 04/27/2011 Blood Pressure (1) 116/82 mm[Hg] (2) 130/84 mm[Hg] (3) 114/82 mm[Hg] 04/07/2011 Height Weight Blood Pressure 165.1 cm 120.66 kg 140/82 mm[Hg] 12/02/2010 Height Weight Blood Pressure 165.1 cm 119.75 kg 125/78 mm[Hg] 07/20/2010 Height Weight Blood Pressure 165.1 cm 121.34 kg (1) 132/70 mm[Hg] (2) 152/80 mm[Hg] 06/07/2010 Weight Blood Pressure 123.38 kg 110/62 mm[Hg] 01/10/2010 Weight Blood Pressure 123.83 kg 148/80 mm[Hg] 10/25/2009 Weight Blood Pressure 123.83 kg 134/78 mm[Hg] 04/28/2009 Weight Blood Pressure 127.91 kg 128/72 mm[Hg] 04/13/2009 Weight Blood Pressure 128.82 kg 128/78 mm[Hg] 03/25/2009 Weight Blood Pressure 128.82 kg 150/78 mm[Hg] 08/12/2008 Weight Blood Pressure 128.82 kg 134/76 mm[Hg] 04/02/2008 Height Weight Blood Pressure 165.74 cm 127.46 kg 130/84 mm[Hg] 12/30/2007 Weight Blood Pressure 127.01 kg 146/84 mm[Hg] 11/06/2007 Weight Blood Pressure 128.37 kg 158/90 mm[Hg] 09/25/2007 Weight Blood Pressure 129.05 kg 140/80 mm[Hg] 02/27/2007 Weight Blood Pressure 127.06 kg 134/84 mm[Hg] 11/06/2006 Height Weight Blood Pressure 167.64 cm 127.01 kg 120/66 mm[Hg] 09/13/2006 Height Weight Blood Pressure 165.74 cm 124.74 kg 140/88 mm[Hg] 08/10/2006 Weight Blood Pressure 127.63 kg 136/84 mm[Hg] 08/02/2006 Weight Blood Pressure 125.42 kg (1) 144/82 mm[Hg] (2) 134/80 mm[Hg] 04/02/2006 Weight Blood Pressure 125.87 kg 136/84 mm[Hg] 10/03/2005 Height Weight Blood Pressure 167.64 cm 129.73 kg 126/76 mm[Hg] 09/18/2005 Weight Blood Pressure 126.27 kg 160/90 mm[Hg] 05/04/2005 Weight Blood Pressure 128.82 kg 118/80 mm[Hg] 02/02/2005 Weight Blood Pressure 129.9 kg 140/82 mm[Hg] 09/28/2004 Weight Blood Pressure 126.33 kg 150/90 mm[Hg] 09/02/2004 Height Weight Blood Pressure 167.64 cm 129.73 kg 130/70 mm[Hg]
== END ==
PROVIDERS: PCP Family Medicine; Visit Provider Radiology Radiation Oncology

== ENCOUNTER → 2022-03-22 01:26 | Outpatient (CLI) | payer MEDICARE, SELFPAY ==
--- NOTE | 2022-03-22 | DI.MRI_ITS ---
Exam(s) MR PELVIS WO/W EXAM: MR PELVIS WO/W CLINICAL HISTORY: ENDOMETRIAL CANCER C54.1 S/P RADIOTHERAPY Z92.3 COMPARISON: CT CT RAD ONC BODY INTERP from 10/11/2021 FINDINGS: Multisequence MRI scan of the pelvis was performed on 1.5 lior unit. Both pre and post contrast inf used sequences were performed. IV contrast use was 20 mL Dotarem. Prior outside CT scan of 10/11/19 was reviewed. OSSEOUS: Again noted is degenerative anterolisthesis of l4 upon l5 and l5 upon s1, this due to a comb ination of degenerative facet arthrosis and there are also bilateral pars defects at L5 level. No ominous osseous lesions identified. REPRODUCTIVE: Uterus is surgically absent. There is no mass at the cuff level. No adnexal masses. There is a small amount of free fluid in the dependent aspect of the pelvis just a nterior to the rectum. LYMPH NODES: There is no adenopathy around the aortic bifurcation nor along the iliac chains and ther e is no inguinal adenopathy. No obturator adenopathy. URINARY BLADDER: There are no obvious bladder wall lesions. There is some bladder trabeculation note d. No bladder diverticuli. Pelvic ureter are not dilated. PRESACRAL REGION: No abnormal masses. IMPRESSION: There has been previous hysterectomy. There are no abnormal soft tissue masses in the pelvis. Howev er, there is small amount of free fluid in the dependent aspect of the pelvis. Origin of this fluid is not seen within the pelvis. If clinically indicated CT scan can be performed to determine if ther e is and abdominal etiologic culprit for the small amount of fluid in the pelvis in this patient. DATA REPOSITORY:
[2022-03-22 13:26] LABS: CREATININE 1.2 mg/dL (0.55-1.02); Estimated GFR 43.91 (mL/min/1.73m2)
[2022-03-22] MEDS: Gadoterate meglumine 20 ML SYRINGE IVP (14:22)
[2022-03-22] MEDS: Normal Saline Flush 10 ML SYR IVP (14:22)
== END ==
PROVIDERS: PCP Family Medicine; Visit Provider Radiology Radiation Oncology
DX: C54.1 Malignant neoplasm of endometrium (principal); Z92.3 Personal history of irradiation; Z90.710 Acquired absence of both cervix and uterus
CPT/HCPCS: 72197; 82565